=== PATIENT | male | born 2000 | race Caucasian/White ===

== ENCOUNTER 2020-01-01 18:39 | Emergency (ER) | payer OTHER, SELFPAY ==
[2020-01-01 18:53] VITALS: BP 121/70; PULSE 59; RESP 16; TEMP 37; O2SAT 100
--- NOTE | 2020-01-01 19:04 | ED.SKABFB ---
HPI - Skin/Abscess/Foreign Bdy General Chief complaint: Skin/Abscess/Foreign Body Stated complaint: poison irma Source: patient and RN notes reviewed Mode of arrival: ambulatory Limitations: no limitations History of Present Illness HPI narrative: This is a 19-year-old white male that presents today in urgent care with complaints of a skin rash. He did visit a another urgent care about 2 weeks ago and was prescribed topical steroids. Patient noted that his condition worsen the rash spread from his hands to his lower extremities he also took antihistamine for the itching and was prescribed topical steroids. His condition did not improve so he came to our . Patient rash has papula lesion with erthema on his lower and upper extremities . The patient denies SOB, CP, palpitation, extremity numbness, lightheadedness, dizziness, constipation, diarrhea, chills, or fever. MD complaint: rash Location: LUE and RUE Severity: moderate Related Data Allergies Allergy/AdvReac Type Severity Reaction Status Date / Time No Known Allergies Allergy Verified 01/01/20 18:54 Review of Systems Review of Systems: Narrative: CONSTITUTIONAL: Denies fever, chills, sweats. EYES: Denies visual changes, redness, discharge. ENT: Denies rhinorrhea, congestion, sore throat, otalgia. CARDIOVASCULAR: Denies chest pain, palpitations, edema. RESPIRATORY: Denies dyspnea, wheezing, cough GASTROINTESTINAL: Denies abdominal pain, nausea, vomiting, diarrhea. GENITOURINARY: Denies dysuria, hematuria, abnormal discharge SKIN: Worsening rash that is cm and itching MUSCULOSKELETAL: Denies acute back pain, joint pain, or myalgia. NEUROLOGIC: Denies numbness, or focal weakness. PSYCHIATRIC: Denies anxiety or depression. PMFSH Social History Social History Gender identity (if verbalized by the patient): Male Exam Narrative: Exam Narrative: GENERAL: This is a well-nourished, well-developed patient, in no apparent distress. HEAD: normocephalic, atraumatic. EYES: PERRL. Sclera clear/white. Vision is grossly intact. EARS: External ears normal, auditory canals clear and without drainage, TMs normal without perforation. Hearing grossly intact. NOSE: External nose normal with no obvious nasal discharge, nares without redness, no rhinorrhea. THROAT: Mucous membranes moist, posterior pharynx clear. NECK: Neck supple, non-tender without lymphadenopathy, masses or thyromegaly. CARDIOVASCULAR: Regular rate and rhythm without murmurs, gallops, or rubs. RESPIRATORY: Clear to auscultation. Breath sounds equal bilaterally. No wheezes, rales, or rhonchi. GASTROINTESTINAL: Abdomen soft, non-tender, nondistended. Bowel sounds are active. No hepato-splenomegaly, or palpable masses. No guarding. SKIN: Multiple papula erythema lesions to his upper and lower extremity NEURO: awake, alert, and oriented to person, place and time. There were no obvious focal neurologic abnormalities. Steady gait EXTREMITIES: Normal range of motion. No edema. No calf tenderness. Negative Homans sign bilaterally. BACK: Nontender without deformity or crepitance. No flank tenderness. Const: General: no acute distress Course Vital Signs Vital signs: Vital Signs Temperature 98.6 F 01/01/20 18:53 Pulse Rate 59 L 01/01/20 18:53 Respiratory Rate 16 01/01/20 18:53 Blood Pressure 121/70 01/01/20 18:53 Pulse Oximetry 100 01/01/20 18:53 Temperature 98.6 F 01/01/20 18:53 Pulse Rate 59 L 01/01/20 18:53 Respiratory Rate 16 01/01/20 18:53 Blood Pressure 121/70 01/01/20 18:53 Pulse Oximetry 100 01/01/20 18:53 MDM - Skin/Abscess/Foreign Bdy MDM Narrative Medical decision making narrative: Will prescribe patient prednisone 20 mg daily for 15 days Bactrim twice daily daily for 15 days Discharge Plan Discharge Clinical Impression: Contact dermatitis Patient Disposition: Home, Self-Care Condition: Stable Instructions: Antibiotic Form Additional Instructions:
== END 2020-01-01 19:04 | disposition home or self-care (01) ==
PROVIDERS: Emergency Provider Nurse Practitioner
DX: L25.9 Unspecified contact dermatitis, unspecified cause (principal)
CPT/HCPCS: 99203; G0463